=== PATIENT | female | born 1980 | race Caucasian/White ===

== ENCOUNTER 2016-11-03 06:38 | Emergency (ER) | payer OTHER ==
[2016-11-03 06:45] VITALS: RESP 16
--- NOTE | 2016-11-03 07:00 | EDPHY ---
H & P Stated Complaint: spotting since yest afternoon and bleeding at 0430: 5wks 3 days preg HPI/ROS: CHIEF COMPLAINT: Vaginal spotting, abdominal cramping, 5 weeks . HISTORY OF PRESENT ILLNESS: The patient is a 36-year-old female 5 weeks 3 days (LNMP September 26) who presents with vaginal spotting that began yesterday and abdominal cramping that began this morning. She describes seeing brown spots of blood. She saw a few blood clots this morning. She denies tissue discharge. Her last HCG was 132 4 days ago. She denies cough, recent sickness , or fever. No chills, chest pain, shortness of breath, palpitations, vomiting, diarrhea, urinary complaints, headache, lightheadedness. REVIEW OF SYSTEMS: Aside from elements discussed in the HPI, a comprehensive 10-point review of systems was reviewed and is negative. PAST MEDICAL HISTORY: Anxiety, scoliosis. SOCIAL HISTORY: , nonsmoker, no alcohol use. VITAL SIGNS: Reviewed by me GENERAL: Well-developed, well-nourished, resting comfortably in no respiratory distress. HEENT: Atraumatic. Eyes: No icterus, no injection. Mouth: moist mucous membranes. No erythema or lesions. Neck: supple with no adenopathy. LUNGS: Clear to auscultation bilaterally, no wheezes, rhonchi or rales. CARDIAC: Regular tachycardia, no rubs, murmurs or gallops. ABDOMEN: Soft, nondistended, bowel sounds normal, RLQ and LLQ tenderness. BACK: No CVA tenderness. EXTREMITIES: No edema. Range of motion is normal throughout. Large ecchymosis to superior left galeana. NEURO: Alert and oriented, grossly nonfocal. SKIN: Warm and dry, no rash. PSYCHIATRIC: Normal mentation, no agitation. Portions of this note were transcribed by a biomedical field service engineer. I personally performed a history, physical exam, medical decision making, and confirmed accuracy of information the transcribed note. Source: Patient Exam Limitations: No limitations - Medical/Surgical History Hx Asthma: No Hx Chronic Respiratory Disease: No Hx Diabetes: No Hx Cardiac Disease: No Hx Renal Disease: No Hx Cirrhosis: No Hx Alcoholism: No Hx HIV/AIDS: No Hx Splenectomy or Spleen Trauma: No Other PMH: no PSH. anxiety, scoliosis - Social History Smoking Status: Never smoked Constitutional: Initial Vital Signs Temperature (C) 36.8 C 11/03/16 06:43 Heart Rate 105 H 11/03/16 06:43 Respiratory Rate 16 11/03/16 06:43 Blood Pressure 118/77 11/03/16 06:43 O2 Sat (%) 98 11/03/16 06:43 O2 Delivery Mode Room Air Allergies/Adverse Reactions: No Known Allergies Allergy (Unverified 11/03/16 06:42) Home Medications: Medication Instructions Recorded Hydrocodone/APAP 5/325 [Vernalis 1 tab PO Q6H PRN #10 tab 11/03/16 5/325 (RX)] LORazepam [Ativan] 0.5 - 1 mg PO Q12 PRN #6 tablet 11/03/16 11/03/16 VITAMIN D 11/03/16 Medical Decision Making - Diagnostics Imaging Results: Imaging Impressions Obstetrics Ultrasound 11/03/16 07:49 Impression: 1. No intrauterine identified at this time. 2. No ovarian torsion. 3. No suspicious adnexal masses. 4. Normal follicles in both ovaries with a dominant follicle in the right ovary , measuring 1.2 cm. 5. Minimal free fluid in the pelvis. Findings and recommendations discussed with emergency department physician, Radha Winters MD at 0940 hours on November 03, 2016. Final report concurs with initial preliminary interpretation. Imaging: Discussed imaging studies w/ call center recruiter Radiologist ED Course/Re-evaluation: Patient is five weeks and presenting with lower abdominal pain and vaginal spotting. An IV was established and labs ordered including beta HCG. Obstetrics ultrasound ordered. I offered pain medication but she declined. 1L IV saline administered. Plan for pelvic exam. 0725: Pelvic ultrasound reveals an os that is slightly open, with blood coming from the os. There are no clots and no tissue. WBC elevated at 14.14. Beta HCG is 60.19. Study: Obstetrics ultrasound. Indication: 5 weeks , vaginal bleeding. Results: 1. No intrauterine identified at this time. 2. No ovarian torsion. 3. No suspicious adnexal masses. 4. Normal follicles in both ovaries with a dominant follicle in the right ovary , measuring 1.2 cm. 5. Minimal free fluid in the pelvis. The study was read by the radiologist, Dr. Hsieh. I viewed the images myself on the PACS system. 0940: Ultrasound results conveyed to me by radiology as no IUP. I reassessed the patient and discussed these results with her at this time. I have instructed her to follow up with her RESIDENT CARE COORDINATOR. Non-steroidals and hydrocodone for pain. I have written her Ativan for anxiety. She is comfortable with the plan. I offered her IM Toradol prior to discharge but she declined. Patient and her understand that this is a nonviable . Differential Diagnosis: Differential diagnosis of the patient's vaginal bleeding includes dysfunctional uterine bleeding, threatened miscarriage, spontaneous miscarriage, incomplete miscarriage, ectopic , trauma, cervicitis, ovarian cysts, uterine fibroids, uterine cancer, cervical cancer, and infection. - Data Points Laboratory Results: Laboratory Results 11/03/16 07:10 11/03/16 07:10 11/03/16 11/03/16 11/03/16 07:10 07:10 07:10 WBC RBC Hgb Hct MCV MCH MCHC RDW Plt Count MPV Neut % (Auto) Lymph % (Auto) [place] % (Auto) Eos % (Auto) Baso % (Auto) Nucleat RBC Rel Count Absolute Neuts (auto) Absolute Lymphs (auto) Absolute Monos (auto) Absolute Eos (auto) Absolute Basos (auto) Absolute Nucleated RBC Immature Gran % Immature Gran # Sodium 137 mEq/L mEq/L (134-144) Potassium 4.0 mEq/L mEq/L (3.5-5.2) Chloride 103 mEq/L mEq/L (97-110) Carbon Dioxide 23 mEq/l mEq/l (22-31) Anion Gap 11 mEq/L mEq/L (8-16) BUN 10 mg/dL mg/dL (7-23) Creatinine 0.6 mg/dL mg/dL (0.6-1.0) Estimated GFR > 60 Glucose 101 mg/dL H mg/dL (70-100) Calcium 9.3 mg/dL mg/dL (8.5-10.4) Beta HCG, Qual POSITIVE Beta HCG, Quant 60.19 mIU/mL H mIU/mL (0-4.83) Patient ABO/Rh AB POSITIVE 11/03/16 07:10 WBC 14.14 10^3/uL H 10^3/uL (3.80-9.50) RBC 4.30 10^6/uL 10^6/uL (4.18-5.33) Hgb 13.8 g/dL g/dL (12.6-16.3) Hct 40.0 % % (38.0-47.0) MCV 93.0 fL fL (81.5-99.8) MCH 32.1 pg pg (27.9-34.1) MCHC 34.5 g/dL g/dL (32.4-36.7) RDW 11.8 % % (11.5-15.2) Plt Count 225 10^3/uL 10^3/uL (150-400) MPV 9.8 fL fL (8.7-11.7) Neut % (Auto) 83.3 % H % (39.3-74.2) Lymph % (Auto) 11.7 % L % (15.0-45.0) [place] % (Auto) 4.2 % L % (4.5-13.0) Eos % (Auto) 0.1 % L % (0.6-7.6) Baso % (Auto) 0.4 % % (0.3-1.7) Nucleat RBC Rel Count 0.0 % % (0.0-0.2) Absolute Neuts (auto) 11.78 10^3/uL H 10^3/uL (1.70-6.50) Absolute Lymphs (auto) 1.66 10^3/uL 10^3/uL (1.00-3.00) Absolute Monos (auto) 0.59 10^3/uL 10^3/uL (0.30-0.80) Absolute Eos (auto) 0.01 10^3/uL L 10^3/uL (0.03-0.40) Absolute Basos (auto) 0.06 10^3/uL 10^3/uL (0.02-0.10) Absolute Nucleated RBC 0.00 10^3/uL 10^3/uL (0-0.01) Immature Gran % 0.3 % % (0.0-1.1) Immature Gran # 0.04 10^3/uL 10^3/uL (0.00-0.10) Sodium Potassium Chloride Carbon Dioxide Anion Gap BUN Creatinine Estimated GFR Glucose Calcium Beta HCG, Qual Beta HCG, Quant Patient ABO/Rh Medications Given: Discontinued Medications Sodium Chloride (Ns) 1,000 mls @ 0 mls/hr IV ONCE ONE PRN Reason: Wide Open Stop: 11/03/16 07:19 Last Admin: 11/03/16 07:41 Dose: 1,000 mls Ketorolac Tromethamine (Toradol) 30 mg IVP EDNOW ONE Stop: 11/03/16 09:49 Last Admin: 11/03/16 10:01 Dose: Not Given Departure - Departure Disposition: Home, Routine, Self-Care Clinical Impression: Spontaneous miscarriage, Pelvic pain Condition: Good Instructions: Miscarriage (ED), Pelvic Pain in Women (ED) Additional Instructions: Follow up with your RESIDENT CARE COORDINATOR when you return to [place]. If you need an OB/ SECOND TIME WORKER in [place] you have been given the telephone number of Dr. Matthew, RESIDENT CARE COORDINATOR. I recommend Ibuprofen (Motrin,Advil) or Naproxen Sodium (Aleve) for pain and anti-inflammatory effects. You may take either one, but do not take both. Your dose is: Ibuprofen 600mg every 6-8 hours with food. OR Naproxen Sodium (Aleve) 220mg every 12 hours. Okay to use hydrocodone as needed for severe pain. Take Ativan as prescribed when needed for anxiety. Return for any serious worsening of condition. Referrals: Danitza Matthew DO [Doctor of Osteopathy] - As per Instructions Prescriptions: Hydrocodone/APAP 5/325 [Vernalis 5/325 (RX)] 1 tab PO Q6H PRN #10 tab PRN Reason: Pain LORazepam [Ativan] 0.5 - 1 mg PO Q12 PRN #6 tablet PRN Reason: Anxiety Report Scribed for: Radha Winters Report Scribed by: Darius Canas Date of Report: 11/03/16 Time of Report: 07:15
[2016-11-03] MEDS ORDERED: NS 1,000 ML IV ONE (07:18)
[2016-11-03 07:25] LABS: % IMMATURE GRANULYOCYTES 0.3 % (0.0-1.1); ABSOLUTE IMMATURE GRANULOCYTES 0.04 10^3/uL (0.00-0.10); ADD DIFF? NO; ADD MORPH? NO; ADD SCAN? NO; ATYPICAL LYMPHOCYTE FLAG 0 (0-99); FRAGMENT RBC FLAG 0 (0-99); HEMOGLOBIN 13.8 g/dL (12.6-16.3); LEFT SHIFT FLG 0 (0-99); LIPEMIA HEMOLYSIS FLAG 90 (0-99); MEAN CELL HEMOGLOBIN 32.1 pg (27.9-34.1); MEAN CELL HEMOGLOBIN CONCENTR. 34.5 g/dL (32.4-36.7); MEAN PLATELET VOLUME 9.8 fL (8.7-11.7); PLATELET CLUMPS FLAG 10 (0-99); PLATELET COUNT 225 10^3/uL (150-400); RED CELL DISTRIBUTION WIDTH 11.8 % (11.5-15.2)
[2016-11-03 07:40] LABS: ANION GAP 11 mEq/L (8-16); CALCIUM 9.3 mg/dL (8.5-10.4); CARBON DIOXIDE 23 mEq/l (22-31); CHLORIDE 103 mEq/L (97-110); CREATININE 0.6 mg/dL (0.6-1.0); GLOMERULAR FILTRATION RATE > 60; GLUCOSE 101 mg/dL (70-100); SODIUM 137 mEq/L (134-144)
[2016-11-03] MEDS ORDERED: KETOROLAC 30 MG/1 ML SDV IVP ONE (09:48)
[2016-11-03 10:11] VITALS: BP 105/70; PULSE 72; TEMP 98.6; O2SAT 96
== END 2016-11-03 10:10 | disposition home or self-care (01) ==
DX: O03.9 Complete or unspecified spontaneous abortion without complication (principal); Z3A.01 Less than 8 weeks gestation of pregnancy